=== PATIENT | female | born 1975 | race Caucasian/White ===

== ENCOUNTER 2024-06-13 11:08 | Day surgery (SDC) | payer OTHER, SELFPAY ==
--- NOTE | 2024-06-13 11:16 | PCM.PRE.AN2 ---
ASA Classification* ASA Classification ASA Classification: 2 Assessment & Plan Anesthesia* Anesthesia Assessment Anesthesia Assessment: Discussed sedation and/or anesthesia options, risks, benefits, and alternatives with patient/parents/legal guardian/POA. Questions invited. The patient/parents/legal guardian/POA seems to understand and agrees to proceed with anesthesia plan. Reviewed the physical assessment, medical history, allergy history and patient home medications list prior to surgery/procedure/anesthetic and documented any changes. Performed airway and anesthesia risk assessments. 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 When Was Last Pacemaker Check QUESTION #4 FULL TEXT: You/Your Family Experience fever (hyperthermia) with Anesthesia Last Oral Intake Last Oral intake: Last Oral Intake NPO since Meds taken in AM with sips of water? Meds patient instructed to take am of surgery PONV PONV - editing internship: PONV - editing internship Female Yes 06/07/24 15:07 HX of Motion Sickness No 06/07/24 15:07 HX of N/V After Surgery No 06/07/24 15:07 Non-Smoker Yes 06/07/24 15:07 Duration of Surgery greater No 06/07/24 15:07 than 60 minutes Number of Risk Factors 2 06/07/24 15:07 PONV Score Moderate Risk 06/07/24 15:07 Respiratory Assessment Respiratory Assessment - editing internship: Respiratory Tract Infection Hx - editing internship Hx Respiratory Tract Infection No 06/07/24 15:07 STOP Sleep Apnea STOP Sleep Apnea - editing internship: STOP Sleep Apnea - editing internship Hx Hypertension No 06/07/24 15:07 Hx Sleep Apnea Yes 06/07/24 15:07 CPAP Yes 06/07/24 15:07 BIPAP No 06/07/24 15:07 Do you snore loudly (louder than talking or can be heard Do you often feel tired/ fatigued/ sleepy during daytime? Has anyone observed you stop breathing during sleep? STOP Results Positive 06/07/24 15:07 QUESTION #5 FULL TEXT : Do you snore loudly (louder than talking or can be heard through closed doors)? Tobacco Use History Tobacco Use History - editing internship: Tobacco Use History - editing internship Tobacco Use Smoking Status Never smoker 06/07/24 15:07 Hx Tobacco Use No 06/07/24 15:07 Years Smoking Packs Smoked per Day Smoking Cessation Date was within the last 15 years Hx Smoking Cessation Date Hx Smoking Cessation Counseling Hematologic Medial History Hematologic Hx - editing internship: Hematologic Medical Hx - solar manager Hx of Blood Transfusion No 06/07/24 15:07 Hx of Transfusion in last 3 No 06/07/24 15:07 Months Date of Last Transfusion (if within last 3 months) Ever experience any problems No 06/07/24 15:07 with transfusion(s)? Specify any problems Hx of Preganancy in last 3 No 06/07/24 15:07 Months Nurse Filling Out Transfusion VCHRISTIN 06/07/24 15:07 & Questions: Date: 06/07/24 06/07/24 15:07 Time: 15:08 06/07/24 15:07 Patient unable to answer at this time (ie. confused, unrespo /Reproduction History /Reproductive History - editing internship: /Reproductive Hx- editing internship Hx Now No 06/07/24 15:07 Gestational Age (in weeks): EDC: Hx Hx Para Hx Section SAB No 06/07/24 [facility]:07 [facility] History Wears glasses Depression Lyme disease History of steroid therapy Arthritis DVT (deep venous thrombosis) Back pain Injury of back Migraine headache Gastric reflux Non-smoker CPAP (continuous positive airway pressure) dependence Sleep apnea Shortness of breath on exertion Asthma History of pain when walking History of echocardiogram History of stress test Chest pain Home Medications ?Medication ?Instructions ?Recorded ?Last Taken ?Type Saccharomyces boulardii 250 mg 250 mg PO BID 04/19/24 Unknown History capsule (Daily Probiotic (S. boulardii)) calcium 500 mg-vitamin D3 100 1 tab PO DAILY 04/19/24 Unknown History unit-vitamin K 40 mcg chewable tablet (Calcium for Women) etonogestrel 0.12 mg-ethinyl 1 vag ring vaginal Q4W 04/19/24 Unknown History estradiol 0.015 mg/24 hr vaginal ring (NuvaRing) ferrous sulfate 325 mg (65 mg 325 mg PO DAILY 04/19/24 06/07/24 History iron) tablet (FeroSul) fluticasone 100 mcg-salmeterol 50 1 inh inhalation BID 04/19/24 Unknown History mcg/dose blistr powdr for inhalation (Advair Diskus) gabapentin 100 mg capsule 100 mg PO DAILY PRN pain 04/19/24 Unknown History multivitamin 1 tab PO DAILY 04/19/24 06/07/24 History pantoprazole 40 mg tablet,delayed 40 mg PO BID 04/19/24 Unknown History release quetiapine 50 mg tablet (Seroquel) 50 mg PO QHS 04/19/24 Unknown History dicyclomine 10 mg capsule 10 mg PO BID PRN abdominal pain 06/07/24 Unknown History indomethacin 50 mg capsule 50 mg PO BID 06/07/24 Unknown History loratadine 10 mg tablet (Allergy 10 mg PO DAILY 06/07/24 Unknown History Relief (loratadine)) Allergy/AdvReac Type Severity Reaction Status Date / Time No Known Allergies Allergy Verified 06/07/24 14:52 Surgical History Hx of dilation and curettage Hx of laparoscopy Hx of sinus surgery Social History Smoking Status: Never smoker Review of Systems (Anesthesia) ROS Narrative System reviewed and no additional complaints, except as documented.
[2024-06-13 11:31] VITALS: BP 131/73; PULSE 90; RESP 16; TEMP 36.7; O2SAT 100; BMI 28.1
[2024-06-13 11:37] LABS: Internal QC Validated? YES +Cl - CLEAR BKGD; Pregnancy, Urine Negative Negative
--- NOTE | 2024-06-13 12:00 | EGD_PTH ---
PATIENT: JUAN MANUEL GRANADOS LOC: [facility] U#:[id number] AGE/SX: 49/F ROOM: RE06/13/[address]: Dr. Anderson Oneal DO : 1975 BED: DIS: 06/13/2024 SPEC #: [id number] RECD: 06/13/24 13:14 STATUS: NIKKY NICKY #: [id number] LUCIUS: 06/13/24 12:[address]: Anderson Oneal DEPT: SURGICAL PATHOLOGY RECD BY: Angelika Boswell ENTERED: 06/13/24 13:33 SP TYPE: EGD BIOPSY OT DR: Dr. Twin Daniel MD Tissues: A - Duodenum, NOS B - Gastric mucous membrane C - Esophagus, NOS D - Ileum, NOS E - COLON BIOPSY Procedures: Surgery Specimen Level IV HEADER OPERATION: Colonoscopy, biopsy, EGD PRE-OP DIAGNOSIS: Left sided abdominal pain, GERD TISSUE SUBMITTED: A- Duodenum biopsy, B- Gastric body biopsy, C- Random esophagus biopsy, D- Terminal ileum biopsy, E- Random colonic biopsy MICROSCOPIC DIAGNOSIS A. Duodenum, biopsy: Fragments of duodenal mucosa, no pathologic diagnosis. B. Gastric body, biopsy: Mild gastritis. See microscopic description and comment. C. Esophagus, random biopsy: Fragments of benign squamous epithelium with mild chronic inflammation. See comment. D. Terminal ileum, biopsy: Fragments of small intestinal mucosa, no pathologic diagnosis. See comment. E. Colon, random biopsy: Fragments of colonic mucosa, no pathologic diagnosis. 06/14/2024 COMMENT B. The results of immunohistochemistry for Helicobacter pylori will be reported separately ([id number]). C. Increased number of eosinophilic esophagitis, consistent with eosinophilic esophagitis are not seen. D. Prominent lymphoid aggregates are noted. MICROSCOPIC DESCRIPTION Slides are reviewed. B. The specimen shows fragments of gastric mucosa with chronic inflammatory cell infiltrates in the lamina propria consisting of lymphocytes and plasma cells, consistent with mild chronic gastritis. GROSS DESCRIPTION A. Received in fixative is one container labeled with the patient's name and designated Duodenum biopsy. The specimen consists of multiple irregular fragments of light polanco soft tissue that in aggregate measure 1.2 x 0.3 x 0.1 cm. The specimen is totally submitted in one cassette. B. Received in fixative is one container labeled with the patient's name and designated Gastric body biopsy. The specimen consists of multiple irregular fragments of light polanco soft tissue that in aggregate measure 1.0 x 0.5 x 0.1 cm. The specimen is totally submitted in one cassette. C. Received in fixative is one container labeled with the patient's name and designated Random esophagus biopsy. The specimen consists of multiple irregular fragments of light polanco soft tissue that in aggregate measure 1.2 x 0.3 x 0.1 cm. The specimen is totally submitted in one cassette. D. Received in fixative is one container labeled with the patient's name and designated Terminal ileum biopsy. The specimen consists of multiple irregular fragments of light polanco soft tissue that in aggregate measure 1.4 x 0.3 x 0.1 cm. The specimen is totally submitted in one cassette. E. Received in fixative is one container labeled with the patient's name and designated Random colonic biopsy. The specimen consists of multiple irregular fragments of light polanco soft tissue that in aggregate measure 1.0 x 0.5 x 0.1 cm. The specimen is totally submitted in one cassette. [employer] 06/13/2024 TC:3 CPT:65318f3
--- NOTE | 2024-06-13 12:00 | IMM_PTH ---
PATIENT: JUAN MANUEL GRANADOS LOC: [facility] U#:[id number] AGE/SX: 49/F ROOM: RE06/13/[address]: Dr. Anderson Oneal DO : 1975 BED: DIS: 06/13/2024 SPEC #: [id number] RECD: 06/14/24 08:09 STATUS: NIKKY REQ #: [id number] LUCIUS: 06/13/24 12:[address]: Anderson Oneal DEPT: IMMUNOHISTOCHEMISTRY RECD BY: Ismael Arias ENTERED: 06/14/24 08:10 SP TYPE: IMMUNO OTHR DR: Dr. Twin Daniel MD Tissues: B - Gastric mucous membrane Procedures: H Pylori (initial) PHYSICIAN & INSTITUTION [place] [id number] SPECIMEN INFORMATION: Tissue Source: B- Gastric body biopsy Clinical Info: Left sided abdominal pain, GERD Specimen Number: [id number] CPT code: 76630 METHODOLOGY: Deparaffinized sections of prefer/formalin-fixed tissue or PAP/DQ stained slides are incubated with monoclonal/polyclonal antibodies/oligonucleotide probes. Localization is made via biotin free immunoperoxidase method. Appropriate controls are performed and reacted as expected. Results on target cell population are indicated in the following table: RESULTS: ANTIBODY / CLONE RESULT Block B H Pylori (polyclonal) negative These tests were developed and their performance characteristics determined by [facility]. They may not have been cleared or approved by the U.S. Food and Drug Administration. The FDA has determined that such clearance or approval is not necessary. The above immunohistochemical/dualISH markers are ordered and reviewed by the Pathologist. INTERPRETATION: B. Gastric body, biopsy: Negative for Helicobacter pylori organisms. 06/15/2024
--- NOTE | 2024-06-13 12:04 | HP.PCM_ITS ---
History and Physical Date of Admission: 06/13/24 JUAN MANUEL GRANADOS, is a 49 F who presents to the office today for establishment with [facility]. She has been having LUQ abdominal for years now but has been increasing as of lately which is what prompted her to be seen here today. She feels a fullness in her LUQ with the pain. She has also had reflux symptoms that have been refractory to BID PPI therapy. She also has occasional episodes of loose stool. She has persistent nausea after eating but does not notice that specific foods make it worse. She had to go off pantoprazole for a few days when she was taking doxycycline so she does feel it helps. This all started after she had COVID a few years ago but also feels some of this may be related to menopause. She has been diagnosed with long COVID. She was seeing GI in [place] and had scopes done there which were without any pertinent abnormality. Overall, she is not feeling like herself and would like to get testing done. ROS Const Constitutional: Positive for fatigue and weight change Gastro GI: Positive for abdominal pain, bloating, change in bowel habits, diarrhea and heartburn Musc Musculoskeletal: Positive for joint pain, back pain, stiffness and Arthritis Skin Skin: Positive for dry skin and itchy eyes Psych Psychiatric: Positive for anxiety Endo Endocrine: Positive for fatigue and weight change Aller/Imm Allergy/Immunologic: Positive for itchy eyes Exam Const General: cooperative and comfortable Nutritional Appearance: average body habitus and well nourished [facility] Head: normal to inspection Ears: hearing grossly normal bilaterally Nose: external nose normal Face and sinus: normal facial exam Eyes General: appearance normal, both eyes and all related structures Neck Neck: normal visual inspection Chest Chest palpation & inspection: normal inspection of the chest Resp Effort & Inspection: normal respiratory effort Cardio Palpation: normal PMI GI Inspection: normal to inspection Auscultation: normal bowel sounds Percussion: normal to percussion Palpation: soft and no hepatosplenomegaly Skin General: no rashes or lesions noted Neuro General: patient alert Extrem General: normal to inspection Psych Affect: normal affect Assessment and Plan Assessment and Plan (1) Left sided abdominal pain: Status: Acute Plan: Patient is here today for establishment with [facility]. She has a hx of GERD which has been refractory to PPI therapy. She also has complaints of LUQ pain. She has had autoimmune work up in past since this all occurred after she had COVID. Differential diagnosis includes gastroparesis, GERD, PUD, or musculoskeletal pain. -Will order blood testing; IBD panel, AMA, ANCA, celiac, food allergen CRP and ESR -Stool testing; calprotectin, lactoferrin and elastase -She has never had imaging of her abdomen, due to her persistent pain and fullness will order CT abdomen/pelvis -Recommended she get a gastric emptying study. This was ordered. -I prescribed her dicyclomine for episodes of abdominal pain. She can take famotidine for breakthrough heartburn -She will f/u in 3 months (2) GERD (gastroesophageal reflux disease): Status: Acute Orders: Orders Gastric Emptying Study Today R10.9 - Unspecified abdominal pain ANCA Today R10.9 - Unspecified abdominal pain Angiotensin Convert Enzyme Today R10.9 - Unspecified abdominal pain Anti-Mitochondrial AB Today R10.9 - Unspecified abdominal pain Anti-Smooth Muscle ABS Today R10.9 - Unspecified abdominal pain Celiac Disease Profile Today R10.9 - Unspecified abdominal pain Erythrocyte Sed Rate Today R10.9 - Unspecified abdominal pain CRP Today R10.9 - Unspecified abdominal pain Allergen, Food Profile 14 Today R10.9 - Unspecified abdominal pain OLLIE Comprehensive Panel Today R10.9 - Unspecified abdominal pain Calprotectin, Stool Today R10.9 - Unspecified abdominal pain Pancreatic Elastase, Fecal Today R10.9 - Unspecified abdominal pain Ova and Parasites 8623 Today K58.9 - Irritable bowel syndrome without diarrhea, R10.9 - Unspecified abdominal pain ENTERIC PATHOGEN PANEL STOOL Today K58.9 - Irritable bowel syndrome without diarrhea, R10.9 - Unspecified abdominal pain Stool Lactoferrin/WBC Today K58.9 - Irritable bowel syndrome without diarrhea, R10.9 - Unspecified abdominal pain IBD Expanded Profile Today R10.9 - Unspecified abdominal pain KATHERINE + Protein Elect, Serum Today R10.9 - Unspecified abdominal pain CDIFF (PCR) Today R10.9 - Unspecified abdominal pain Abdomen/Pelvis WITH Contrast Today R10.9 - Unspecified abdominal pain I have examined the patient and the H&P has been reviewed. There are no clinical changes since date of exam.
[2024-06-13 12:46] VITALS: BP 131/73; BP 132/86; PULSE 96; RESP 18; TEMP 36.6; O2SAT 99
--- NOTE | 2024-06-13 12:48 | PCM.POST.ANE ---
Anesthesia: Postop Eval I Current Vital Signs Temperature: 97.6 F Pulse Rate: 96 Blood Pressure: 132/86 Respiratory Rate: 18 Pulse Ox: 100 Oxygen Delivery Method: Room Air Assessment Airway patent: Yes Spontaneous unlabored respirations: Yes Mental status: Awake and Calm nausea: No Vomiting: No Anesthesia Complication: No Fluid Hydration Crystalloid volume administer (ml): 20 Total IV fluid infused: 20 Progress Note Anesthesia document: Postop Eval 1 completed: Yes
[2024-06-13 12:49] VITALS: BP 125/89; BP 131/73; BP 132/86; PULSE 96; PULSE 99; RESP 18; TEMP 36.4; O2SAT 100
--- NOTE | 2024-06-13 12:53 | OP.CCLET_ITS ---
06/13/2024 Twin Daniel Md Re : Upper GI endoscopy procedure for Malena Crawfordyolanda Daniel This procedure was performed on Thursday, June 13, 2024. My impressions and recommendations are as follows: Impressions : - No gross lesions in the entire esophagus. - A few gastric polyps. - Erythematous mucosa in the gastric body. Biopsied. - No gross lesions in the second portion of the duodenum. Biopsied. - Biopsies were taken with a cold forceps for evaluation of eosinophilic esophagitis. Recommendations : - Discharge patient to home. - Resume previous diet. - Continue present medications. - Await pathology results. -Ultrasound of the abdomen noting the size of the liver and the spleen. -To have the images from her CT scan pushed to our PACS system My findings are described in the full procedure note, which is enclosed. If I can be of further assistance, please feel free to contact me at . Sincerely, Anderson Oneal, 06/13/2024 12:53:15 PM This report has been signed electronically.
--- NOTE | 2024-06-13 12:53 | OP.EGD_ITS ---
Patient Name: Malena Martinez Procedure Date: 06/13/2024 12:15 PM Date of : 1975 Age: 49 Procedure: Upper GI endoscopy Indications: Epigastric abdominal pain, Suspected upper gastrointestinal bleeding in patient with unexplained iron deficiency anemia Providers: Anderson Oneal DO Referring MD: Anderson Oneal DO Medicines: Monitored Anesthesia Care Patient Profile: This is a 49 year old female. Refer to note in patient chart for documentation of history and physical. Patient has symptoms of chronic epigastric abdominal pain and chronic dyspepsia. Refer to note in patient chart for documentation of history and physical. Patient has symptoms of chronic epigastric abdominal pain. Complications: No immediate complications. Procedure: Pre-Anesthesia Assessment: - Prior to the procedure, a History and Physical was performed, and patient medications and allergies were reviewed. The patient is competent. The risks and benefits of the procedure and the sedation options and risks were discussed with the patient. All questions were answered and informed consent was obtained. Patient identification and proposed procedure were verified by the physician in the pre-procedure area. Mental Status Examination: alert and oriented. Airway Examination: normal oropharyngeal airway and neck mobility. Respiratory Examination: clear to auscultation. CV Examination: normal. Prophylactic Antibiotics: The patient does not require prophylactic antibiotics. Prior Anticoagulants: The patient has taken no anticoagulant or antiplatelet agents except for NSAID medication. ASA Grade Assessment: II - A patient with mild systemic disease. After reviewing the risks and benefits, the patient was deemed in satisfactory condition to undergo the procedure. The anesthesia plan was to use monitored anesthesia care (MAC). Immediately prior to administration of medications, the patient was re-assessed for adequacy to receive sedatives. The heart rate, respiratory rate, oxygen saturations, blood pressure, adequacy of pulmonary ventilation, and response to care were monitored throughout the procedure. The physical status of the patient was re-assessed after the procedure. After obtaining informed consent, the endoscope was passed under direct vision. Throughout the procedure, the patient's blood pressure, pulse, and oxygen saturations were monitored continuously. The Colonoscope was introduced through the mouth, and advanced to the second part of duodenum. The upper GI endoscopy was accomplished without difficulty. The patient tolerated the procedure well. Scope In: 12:20:38 PM Scope Out: 12:26:59 PM Total Procedure Duration Time 0 hours 6 minutes 21 seconds Findings: No gross lesions were noted in the entire esophagus. Biopsies were obtained from the proximal and distal esophagus with cold forceps for histology of suspected eosinophilic esophagitis. A few diminutive hyperplastic polyps with no bleeding and no stigmata of recent bleeding were found in the gastric fundus. Patchy mildly erythematous mucosa without bleeding was found in the gastric body. Biopsies were taken with a cold forceps for histology. Verification of patient identification for the specimen was done. Estimated blood loss was minimal. Biopsies were taken with a cold forceps for Helicobacter pylori testing. Verification of patient identification for the specimen was done. Estimated blood loss was minimal. No gross lesions were noted in the second portion of the duodenum. Biopsies were taken with a cold forceps for histology. Verification of patient identification for the specimen was done. Estimated blood loss was minimal. Impression: - No gross lesions in the entire esophagus. - A few gastric polyps. - Erythematous mucosa in the gastric body. Biopsied. - No gross lesions in the second portion of the duodenum. Biopsied. - Biopsies were taken with a cold forceps for evaluation of eosinophilic esophagitis. Recommendation: - Discharge patient to home. - Resume previous diet. - Continue present medications. - Await pathology results. -Ultrasound of the abdomen noting the size of the liver and the spleen. -To have the images from her CT scan pushed to our PACS system Procedure Code(s): --- Professional --- 39727, Esophagogastroduodenoscopy, flexible, transoral; with biopsy, single or multiple CPT copyright 2021 [employer]. All rights reserved. The codes documented in this report are preliminary and upon fourchette sewer review may be revised to meet current compliance requirements. Anderson Oneal DO 06/13/2024 12:53:15 PM This report has been signed electronically. Number of Addenda: 0 Note Initiated On: 06/13/2024 12:15 PM
[2024-06-13 12:55] VITALS: BP 125/85; BP 131/73; PULSE 98; RESP 18; O2SAT 100
[2024-06-13 12:58] VITALS: BP 131/73; BP 131/86; PULSE 90; RESP 18; TEMP 36.1; O2SAT 99
--- NOTE | 2024-06-13 12:58 | OP.CCLET_ITS ---
06/13/2024 Twin Daniel Md Re : Colonoscopy procedure for Malena Mcginnis María This procedure was performed on Thursday, June 13, 2024. My impressions and recommendations are as follows: Impressions : - Congested mucosa in the sigmoid colon, in the descending colon and in the cecum. Biopsied. - Mild inflammation was found in the ileum secondary to ileitis. Biopsied. Recommendations : - Discharge patient to home. - Resume previous diet. - Continue present medications. - Await pathology results. - Repeat colonoscopy is recommended for surveillance. The colonoscopy date will be determined after pathology results from today's exam become available for review. My findings are described in the full procedure note, which is enclosed. If I can be of further assistance, please feel free to contact me at . Sincerely, Anderson Oneal, 06/13/2024 12:58:12 PM This report has been signed electronically.
--- NOTE | 2024-06-13 12:58 | OP.COLON_ITS ---
Patient Name: Malena Martinez Procedure Date: 06/13/2024 12:27 PM Date of : 1975 Age: 49 Procedure: Colonoscopy Indications: Iron deficiency anemia Providers: Anderson Oneal DO Referring MD: Anderson Oneal DO Medicines: Monitored Anesthesia Care Patient Profile: This is a 49 year old female. Refer to note in patient chart for documentation of history and physical. Patient has symptoms of chronic epigastric abdominal pain and chronic dyspepsia. Refer to note in patient chart for documentation of history and physical. Patient has symptoms of chronic epigastric abdominal pain. Last Colonoscopy: 3 years ago. Complications: No immediate complications. Procedure: Pre-Anesthesia Assessment: - Prior to the procedure, a History and Physical was performed, and patient medications and allergies were reviewed. The patient is competent. The risks and benefits of the procedure and the sedation options and risks were discussed with the patient. All questions were answered and informed consent was obtained. Patient identification and proposed procedure were verified by the physician in the pre-procedure area. Mental Status Examination: alert and oriented. Airway Examination: normal oropharyngeal airway and neck mobility. Respiratory Examination: clear to auscultation. CV Examination: normal. Prophylactic Antibiotics: The patient does not require prophylactic antibiotics. Prior Anticoagulants: The patient has taken no anticoagulant or antiplatelet agents except for NSAID medication. ASA Grade Assessment: II - A patient with mild systemic disease. After reviewing the risks and benefits, the patient was deemed in satisfactory condition to undergo the procedure. The anesthesia plan was to use monitored anesthesia care (MAC). Immediately prior to administration of medications, the patient was re-assessed for adequacy to receive sedatives. The heart rate, respiratory rate, oxygen saturations, blood pressure, adequacy of pulmonary ventilation, and response to care were monitored throughout the procedure. The physical status of the patient was re-assessed after the procedure. After I obtained informed consent, the scope was passed under direct vision. Throughout the procedure, the patient's blood pressure, pulse, and oxygen saturations were monitored continuously. The Colonoscope was introduced through the anus and advanced to the terminal ileum. The colonoscopy was performed without difficulty. The patient tolerated the procedure well. The quality of the bowel preparation was adequate. The terminal ileum, ileocecal valve, appendiceal orifice, and rectum were photographed. Scope In: 12:29:37 PM Scope Withdrawal Time 0 hours 8 minutes 43 seconds Scope Out: 12:41:29 PM Total Procedure Duration Time 0 hours 11 minutes 52 seconds Findings: The perianal and digital rectal examinations were normal. An area of mildly congested mucosa was found in the sigmoid colon, in the descending colon and in the cecum. Biopsies were taken with a cold forceps for histology. Verification of patient identification for the specimen was done. Estimated blood loss was minimal. Patchy mild inflammation characterized by congestion (edema) and erythema was found in the terminal ileum. Biopsies were taken with a cold forceps for histology. Verification of patient identification for the specimen was done. Estimated blood loss was minimal. Impression: - Congested mucosa in the sigmoid colon, in the descending colon and in the cecum. Biopsied. - Mild inflammation was found in the ileum secondary to ileitis. Biopsied. Recommendation: - Discharge patient to home. - Resume previous diet. - Continue present medications. - Await pathology results. - Repeat colonoscopy is recommended for surveillance. The colonoscopy date will be determined after pathology results from today's exam become available for review. Procedure Code(s): --- Professional --- 51893, Colonoscopy, flexible; with biopsy, single or multiple CPT copyright 2021 [employer]. All rights reserved. The codes documented in this report are preliminary and upon cigar packing examiner review may be revised to meet current compliance requirements. Anderson Oneal DO 06/13/2024 12:58:12 PM This report has been signed electronically. Number of Addenda: 0 Note Initiated On: 06/13/2024 12:27 PM
--- NOTE | 2024-06-13 13:31 | POSTOPAN2_ITS ---
Anesthesia Postop Eval I Sum Postop Eval Completion status Anesthesia document: Postop Eval 1 completed: Yes Anesthesia Postop Eval I Summary Anesthesia Postop Eval I Summary: Anesthesia Postop Eval I: Assessment Summary Airway patent Yes 06/13/24 12:49 [email or web address] [email or web address] Spontaneous unlabored Yes 06/13/24 12:49 CHEESE [email or web address] respirations Mental status Awake,Calm 06/13/24 12:49 CHEESE [email or web address] nausea No 06/13/24 12:49 CHEESE [email or web address] Vomiting No 06/13/24 12:49 CHEESE [email or web address] Anesthesia Postop Eval I: Fluid Summary Crystalloid volume administer 20 06/13/24 12:49 CHEESE [email or web address] (ml) Colloids volume administered ( ml) Blood Product volume administered (ml) Total IV fluid infused 20 06/13/24 12:49 [email or web address] [email or web address] Anesthesia Postop Eval I: Summary Notes Anesthesia Complication No 06/13/24 12:49 CHEESE [email or web address] Anesthesia Complication Comment: Post-operative progress note Anesthesia: Postop Eval II Evaluation Mental status: Awake Pain Level: 0 nausea: No Vomiting: No
--- NOTE | 2024-06-13 13:31 | PCM.POSTANE2 ---
Anesthesia Postop Eval I Sum Postop Eval Completion status Anesthesia document: Postop Eval 1 completed: Yes Anesthesia Postop Eval I Summary Anesthesia Postop Eval I Summary: Anesthesia Postop Eval I: Assessment Summary Airway patent Yes 06/13/24 12:49 DOCUMENTATION [email or web address] Spontaneous unlabored Yes 06/13/24 12:49 DOCUMENTATION [email or web address] respirations Mental status Awake,Calm 06/13/24 12:49 DOCUMENTATION [email or web address] nausea No 06/13/24 12:49 DOCUMENTATION [email or web address] Vomiting No 06/13/24 12:49 DOCUMENTATION [email or web address] Anesthesia Postop Eval I: Fluid Summary Crystalloid volume administer 20 06/13/24 12:49 DOCUMENTATION [email or web address] (ml) Colloids volume administered ( ml) Blood Product volume administered (ml) Total IV fluid infused 20 06/13/24 12:49 DOCUMENTATION [email or web address] Anesthesia Postop Eval I: Summary Notes Anesthesia Complication No 06/13/24 12:49 DOCUMENTATION [email or web address] Anesthesia Complication Comment: Post-operative progress note Anesthesia: Postop Eval II Evaluation Mental status: Awake Pain Level: 0 nausea: No Vomiting: No
[2024-06-13 13:35] VITALS: BP 131/73
== END 2024-06-13 14:00 | disposition home or self-care (01) ==
LOC: EN 11:12 → AC 11:13
PROVIDERS: Anesthesiology; PCP Family Medicine; Referring Provider Family Medicine; Visit Provider Internal Medicine Gastroenterology
PROC: 0DJD8ZZ Inspection of Lower Intestinal Tract, Via Natural or Artificial Opening Endoscopic (ICD-10-PCS; CPT 45378; principal; 2024-06-13 11:55)
DX: K21.00 Gastro-esophageal reflux disease with esophagitis, without bleeding (principal); D50.9 Iron deficiency anemia, unspecified; K31.7 Polyp of stomach and duodenum; F41.9 Anxiety disorder, unspecified; K58.9 Irritable bowel syndrome, unspecified; K29.70 Gastritis, unspecified, without bleeding; Z79.899 Other long term (current) drug therapy; J45.909 Unspecified asthma, uncomplicated
CPT/HCPCS: 45380; 43239; 81025; 88305; 88342; A4216; J3490

== ENCOUNTER → 2024-07-14 | Outpatient (CLI) | payer OTHER, SELFPAY ==
[2024-07-14] VITALS (15 sets, daily range): BP systolic 107–128; BP diastolic 63–90; PULSE 59–78; RESP 10–24; TEMP 36.4; O2SAT 95–100; BMI 26.4
[2024-07-14] MEDS: Midazolam 2 MG/2 ML Syringe IV (10:18)
[2024-07-14] MEDS: 0.9% Saline Lock 10 ML Syringe IV (10:21)
[2024-07-14] MEDS: fentaNYL 100 MCG/2 ML Ampul IV ×2 (10:22→10:38)
[2024-07-14] MEDS: Lidocaine 2% (20 ml mdv) 20 ML Vial INFILT (10:35)
[2024-07-14] MEDS: Ketorolac 30 MG/ML Syringe IV (10:56)
== END | disposition home or self-care (01) ==
LOC: CT 09:10
PROVIDERS: PCP Family Medicine; Referring Provider Student in an Organized Health Care Education/Training Program; Visit Provider Student in an Organized Health Care Education/Training Program
DX: K76.0 Fatty (change of) liver, not elsewhere classified (principal); K73.9 Chronic hepatitis, unspecified; R16.0 Hepatomegaly, not elsewhere classified
CPT/HCPCS: 47000; 77012; 88307; 88312; 99156; A4216